=== PATIENT | female | born 1980 | race African-American/Black ===

== ENCOUNTER 2021-01-17 12:12 | Emergency (ER) | payer OTHER, SELFPAY ==
[2021-01-17 12:26] VITALS: BP 114/73; PULSE 91; RESP 20; TEMP 36.7; O2SAT 99
--- NOTE | 2021-01-17 12:35 | ED.GENADULT ---
HPI - General Adult General Chief complaint: Urogenital-Female Stated complaint: VAGINAL REDNESS/WHITE DISCHARGE/CRAMPING Time Seen by Provider: 01/17/21 12:25 Source: patient Mode of arrival: ambulatory Limitations: no limitations History of Present Illness HPI narrative: Daniella comes in with complaints of vaginal itching, and white discharge, which she describes as a white curd. Itching and discomfort has been moderately severe and ongoing for two days, with white discharge, more severe today. Duration has been two days. Measures taken at home has not helped. Related Data Allergies Allergy/AdvReac Type Severity Reaction Status Date / Time No Known Allergies Allergy Unknown Verified 06/21/15 13:33 Review of Systems Constitutional: Constitutional: Reports no additional constitutional complaints Eyes: Eyes: Reports no additional eye complaints ENT: Reports system reviewed and no additional complaints, except as documented Cardiovascular: Cardiovascular: Reports no additional cardiovascular complaints Respiratory: Respiratory: Reports no additional respiratory complaints Gastrointestinal: Gastrointestinal: Reports no additional gastrointestinal complaints Genitourinary: Genitourinary: Reports no additional female genitourinary complaints Musculoskeletal: Musculoskeletal: Reports no additional musculoskeletal complaints Integumentary/Breasts: Skin/Breast: Reports system reviewed and no additional complaints, except as docu Neurologic: Reports system reviewed and no additional complaints, except as documented Psychiatric: Psychiatric: Reports no additional psychiatric complaints Endocrine: Endocrine: Reports no additional endocrine complaints Hematologic/Lymphatic: Hematologic/Lymphatic: Reports no additional hematologic/lymphatic complaints Allergic/Immunologic: Allergic/Immunologic: Reports no additional allergic/immunologic complaints [facility] Past Medical History Medical History (Updated 01/17/21 @ 12:46 by Hector Malone MD) No significant past medical history Surgical History Surgical History (Updated 01/17/21 @ 12:46 by Hector Malone MD) No significant past surgical history Family History Family History (Updated 01/17/21 @ 12:46 by Hector Malone MD) Other No significant family history Social History Social History Smoking status: Never smoker Alcohol intake: never Gender identity (if verbalized by the patient): Female Exam Const: General: no acute distress and alert Orientation/consciousness: patient oriented x3 HENMT: Head: normal to inspection Ears: external ears normal and TM's normal bilaterally General nose exam: Normal external nose present Mouth: Yes Normal oral and palatal mucosa present Throat: posterior oropharynx normal Eyes: Conjunctivae: conjunctivae normal Neck: Neck: normal visual inspection Chest: Chest palpation & inspection: normal inspection of the chest Resp: Effort & Inspection: normal respiratory effort Auscultation: clear to auscultation bilaterally Cardio: Rate: regular rate Rhythm: regular rhythm GI: GI Palp: Yes Soft to palpation (nontender) : Other: Limited pelvic exam was done with Audrey RN, as cloth mercerizer operator. Exterior genitals appear within normal limits. As I open the labia, she has what looks like an obvious yeast vaginitis, with lots of white discharge. She has no adnexal tenderness on bimanual exam. There was concern I could cause her significant discomfort with the speculum, given her anatomy, and since it appeared the diagnosis was already obvious, a speculum exam was avoided. She clearly has a yeast vaginitis. Skin: General skin exam: normal color Neuro: General: patient oriented x3 and moves all extremities Extrem: General: normal to inspection Psych: Appearance: grossly normal Mental Status: mental status grossly normal Thought content: Yes Normal thought content present Course Course Emergency Course: Physical
== END 2021-01-17 12:52 | disposition home or self-care (01) ==
PROVIDERS: Emergency Provider Emergency Medicine
DX: N76.0 Acute vaginitis (principal)
CPT/HCPCS: 99283

== ENCOUNTER 2021-03-13 11:10 | Emergency (ER) | payer OTHER, SELFPAY ==
--- NOTE | 2021-03-13 11:39 | ED.GENADULT ---
HPI - General Adult General Chief complaint: Vaginal Bleeding Stated complaint: vaginal bleeding Time Seen by Provider: 03/13/21 11:39 History of Present Illness HPI narrative: 40-year-old female patient the cavernous 7 para 7 with 1 set of twins and 1 miscarriage is here with vaginal bleeding that started this morning. Patient states that she had her regular period on February 23 that ended on the . Last couple days she felt a little bloated and then this morning she started having irregular period again. She denies feeling lightheaded. She denies massive bleeding, states that that it feels like a regular period. she denies any urinary symptoms. She denies any fever or chills. Patient states that her last was 6 years ago and she states that she is not on any control pills nor is she sexually active. Related Data Home Medications Medication Instructions Recorded Confirmed No Home Medications 03/13/21 03/13/21 Allergies Allergy/AdvReac Type Severity Reaction Status Date / Time No Known Allergies Allergy Unknown Verified 06/21/15 13:33 Review of Systems Review of Systems: All systems reviewed & are unremarkable except as noted in HPI and below PMFSH Past Medical History Medical History No significant past medical history Surgical History Surgical History No significant past surgical history Family History Family History Other No significant family history Social History Social History Smoking status: Never smoker Alcohol intake: never Gender identity (if verbalized by the patient): Female Exam Narrative: Exam Narrative: Patient is alert and appears in no acute distress. Vital signs are stable. HEENT is normal. No conjunctival pallor is noted. Pupils are equal and reactive and EOMs are intact bilaterally. Lungs are clear. Heart tones are regular. No murmurs are appreciated. Abdomen is soft and nontender. No guarding or rebound on deep palpation. Pelvic examination has been deferred at this time. Extremities are within normal limits without any swelling or deformity. Neurologic exam is grossly normal. Patient is normal mood and affect and thought process. Course Course Emergency Course: Patient is aware of her negative urinalysis and negative urinary test. And she has been reassured about the bleeding being either breakthrough or possible menorrhagia. She is advised to follow up with the her primary care doctor or weigher and crusher and for further care. She remains stable. Discharge Plan Discharge Clinical Impression: Vaginal bleeding, Dysfunctional uterine bleeding Patient Disposition: Home, Self-Care Condition: Stable Instructions: Abnormal (Dysfunctional) Uterine Bleeding (ED) Additional Instructions: Stay well-hydrated if bleeding persists follow-up with your OBGYN or your primary care physician take ibuprofen for any cramps as needed Prescriptions: No Action No Home Medications RF: 0 Follow-up/Referrals: UNKNOWN,DOCTOR [Primary Care Provider] - Time of Disposition: 12:25
[2021-03-13 11:45] LABS: Add Urine Microscopic? YES; Appearance Urine Clear (Clear); Bilirubin Urine Negative (Negative); Blood Urine 2+ (Negative); Color Urine Light Yellow (Yellow); Glucose Urine UA Negative (Negative); Ketones Urine Negative (Negative); Leukocyte Esterase Ur Negative (Negative); Nitrate Urine Negative (Negative); Protein Urine Negative (Negative); Specific Grav Ur 1.025 (1.010-1.020); Urobilinogen Urine 0.2 mg/dL (0.2-1.0)
[2021-03-13 11:50] LABS: Bacteria Urine Trace /hpf; Squamous Epithelial Cell Urine Rare /hpf (Few); WBC Urine 0-3 /hpf (0-3)
[2021-03-13 11:51] LABS: Pregnancy On Board Control Positive; Urine Pregnancy Test Negative
[2021-03-13 12:33] VITALS: RESP 18; O2SAT 100
== END 2021-03-13 12:33 | disposition home or self-care (01) ==
PROVIDERS: Emergency Provider Emergency Medicine
DX: N93.9 Abnormal uterine and vaginal bleeding, unspecified (principal); N93.8 Other specified abnormal uterine and vaginal bleeding
CPT/HCPCS: 81001; 81025; 99282; 99283

== ENCOUNTER 2021-03-16 07:59 | Outpatient (CLI) | payer OTHER, SELFPAY ==
--- NOTE | ~2021-03-16 | US_ITS ---
EXAMINATION: US pelvic complete w TV DATE: 03/16/2021 08:46 INDICATION: Dysfunctional uterine bleeding TECHNIQUE: Multiple transabdominal and endovaginal sonographic images of the pelvis were obtained. COMPARISON: None. FINDINGS: The uterus measures 7.6 x 5.7 cm. The endometrial complex measures 5 mm. A hypoechoic areas of the uterus measuring up to 1.3 cm have the appearance of intramural fibroids. The right ovary karime sures 3.1 x 2 x 1.4 cm and contains multiple follicles. The left ovary measures 2.1 x 1.6 x 1.5 cm an d contains multiple follicles. There is normal vascular flow in the ovaries. There is no free fluid i n the pelvis. IMPRESSION: 1. No sonographic correlate for the patient's symptoms. Reviewed, dictated and finalized at location B.
== END 2021-03-16 08:00 | disposition home or self-care (01) ==
LOC: CHSIMG 08:00
PROVIDERS: PCP Family Medicine; Visit Provider Nurse Practitioner Psychiatric/Mental Health
DX: N93.8 Other specified abnormal uterine and vaginal bleeding (principal)
CPT/HCPCS: 76830; 76856

== ENCOUNTER 2021-06-30 06:47 | Emergency (ER) | payer OTHER, SELFPAY ==
[2021-06-30 07:00] VITALS: BP 119/76; PULSE 74; RESP 20; TEMP 36; O2SAT 100
[2021-06-30] MEDS: methylPREDNISolone SOD SUCC 125 MG VIAL IM (07:44)
[2021-06-30] MEDS: diphenhydrAMINE HCl CAP 25 MG CAPSULE 50 MG PO (07:44)
--- NOTE | 2021-06-30 07:49 | ED.SKABFB ---
HPI - Skin/Abscess/Foreign Bdy General Chief complaint: Skin/Abscess/Foreign Body Stated complaint: Rash Time Seen by Provider: 06/30/21 07:01 Source: patient and RN notes reviewed Mode of arrival: ambulatory Limitations: no limitations History of Present Illness complaint: rash Onset (ago): week(s) (4) Location: generalized Severity: mild Quality: pruritic Pain Consistency: other (pain-free) Relieving factors: topical medication and medication Exacerbating factors: none Context: other (known pityriasis rosea) Associated symptoms: itching Treatments prior to arrival: OTC topical medication Related Data Home Medications Medication Instructions Recorded Confirmed cephalexin 500 mg PO DAILY 06/30/21 06/30/21 terbinafine HCl 250 mg PO DAILY 06/30/21 06/30/21 Allergies Allergy/AdvReac Type Severity Reaction Status Date / Time No Known Allergies Allergy Unknown Verified 06/21/15 13:33 Review of Systems Review of Systems: All systems reviewed & are unremarkable except as noted in HPI and below Allergic/Immunologic: Comments: Mildly increased itchiness of pityriasis rosea. [facility] Past Medical History Medical History No significant past medical history Pityriasis rosea Surgical History Surgical History No significant past surgical history Family History Family History Other No significant family history Social History Social History Smoking status: Never smoker Alcohol intake: never Gender identity (if verbalized by the patient): Female Exam Const: General: no acute distress and alert Orientation/consciousness: patient oriented x3 Limitations: no limitations HENMT: Head: normal to inspection Ears: external ears normal and TM's normal bilaterally General nose exam: Normal external nose present and Normal nares present Mouth: Yes lip normal and Yes moist mucous membranes Teeth and gingiva: dentition normal Eyes: Conjunctivae: conjunctivae normal Pupils: Equal, round and reactive pupils present EOM: EOMs intact bilaterally Neck: Neck: normal visual inspection Chest: Chest palpation & inspection: normal inspection of the chest Resp: Effort & Inspection: normal respiratory effort Auscultation: clear to auscultation bilaterally Cardio: Rate: regular rate Rhythm: regular rhythm GI: Auscultation: normal bowel sounds : General: Yes bladder normal to palpation and Yes no CVA tenderness Back/Spine/Pelvis: Back: no CVA tenderness Skin: General skin exam: normal color Other: generalized plaque-like rash with excoriations and topical calamine. Neuro: General: patient oriented x3, moves all extremities, no meningeal signs, no focal motor deficits and CN's II-XI intact bilaterally Extrem: General: normal to inspection Psych: Appearance: grossly normal and well kempt Mental Status: mental status grossly normal Affect: normal affect Attitude: cooperative Thought content: Yes Normal thought content present Course Course Emergency Course: Pt was stable in the ED. Home with Ship/Rec/Doc Control review DENISHA. Reevaluation(s) Reevaluation #1: pt was stable in the ED. Date: 06/30/21 Time: 07:56 Vital Signs Vital signs: Vital Signs Temperature 36.0 C L 06/30/21 07:00 Pulse Rate 74 06/30/21 07:00 Respiratory Rate 20 06/30/21 07:00 Blood Pressure 119/76 06/30/21 07:00 Pulse Oximetry 100 06/30/21 07:00 Temperature 36.0 C L 06/30/21 07:00 Pulse Rate 74 06/30/21 07:00 Respiratory Rate 20 06/30/21 07:00 Blood Pressure 119/76 06/30/21 07:00 Pulse Oximetry 100 06/30/21 07:00 MDM - Skin/Abscess/Foreign Bdy Differential Diagnosis Differential diagnosis: Likely urticaria, allergic reaction to drug, eczema and contact dermatitis Medical
== END 2021-06-30 08:08 | disposition home or self-care (01) ==
PROVIDERS: Emergency Provider Emergency Medicine; PCP Family Medicine
DX: L42 Pityriasis rosea (principal)
CPT/HCPCS: 96372; 99283; A9270; J2930

== ENCOUNTER 2021-07-07 08:44 | Emergency (ER) | payer OTHER, SELFPAY ==
[2021-07-07 09:00] VITALS: BP 113/81; PULSE 88; RESP 14; TEMP 36.3; O2SAT 100
--- NOTE | 2021-07-07 09:57 | ED.SKABFB ---
HPI - Skin/Abscess/Foreign Bdy General Chief complaint: Skin/Abscess/Foreign Body Stated complaint: RASH Time Seen by Provider: 07/07/21 09:58 Source: patient Mode of arrival: ambulatory Limitations: no limitations History of Present Illness HPI narrative: 40-year-old woman comes in today complaining of an itchy rash that started approximately 2 weeks ago. 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 Her itching has gotten significantly worse. She has had no pustules, blisters, drainage. she states that she took a short course of steroids for her symptoms which helped the itching temporarily but the itching and rash came back worse after stopping the steroid. She denies previous similar symptoms. complaint: rash Onset (ago): week(s) (2) Location: generalized Quality: pruritic Relieving factors: medication (steroids) Exacerbating factors: none Context: none Associated symptoms: denies other symptoms Treatments prior to arrival: corticosteroid and antibiotic Related Data Allergies Allergy/AdvReac Type Severity Reaction Status Date / Time No Known Allergies Allergy Unknown Verified 07/07/21 09:11 Review of Systems Review of Systems: All systems reviewed & are unremarkable except as noted in HPI and below Constitutional: Constitutional: Denies chills and Denies fever(s) Respiratory: Respiratory: Denies cough and Denies dyspnea Gastrointestinal: Gastrointestinal: Denies nausea and Denies vomiting Musculoskeletal: Musculoskeletal: Denies arthralgias and Denies joint swelling Integumentary/Breasts: Skin/Breast: Reports pruritus, Denies erythema and Reports rash PMFSH Past Medical History Medical History No significant past medical history Pityriasis rosea Surgical History Surgical History No significant past surgical history Family History Family History Other No significant family history Social History Social History Smoking status: Never smoker Alcohol intake: never Gender identity (if verbalized by the patient): Female Exam Const: General: no acute distress and alert Orientation/consciousness: patient oriented x3 HENMT: Head: normal to inspection Mouth: Yes moist mucous membranes Throat: posterior oropharynx normal Eyes: Conjunctivae: conjunctivae normal Pupils: Equal, round and reactive pupils present EOM: EOMs intact bilaterally Resp: Effort & Inspection: normal respiratory effort and not labored Auscultation: clear to auscultation bilaterally, no rales, no rhonchi and no wheezes Cardio: Rate: regular rate Rhythm: regular rhythm Heart sounds: no murmurs Skin: General skin exam: normal color, no jaundice and no pallor Other: Oval 1-3 cm macules with silver scale over the trunk and proximal arms and legs. Face is minimally involved. Neuro: General: patient oriented x3, moves all extremities, no focal motor deficits and CN's II-XI intact bilaterally Speech: normal speech Gait exam (Neuro): Normal gait present Extrem: General: normal to inspection and no clubbing, cyanosis or edema Psych: Appearance: grossly normal and well kempt Mental Status: mental status grossly normal Affect: normal affect Attitude: cooperative Thought content: Yes Normal thought content present Course Vital Signs Vital signs: Vital Signs Temperature 36.3 C L 07/07/21 09:00 Pulse Rate 88 07/07/21 09:00 Respiratory Rate 14 07/07/21 09:00 Blood Pressure 113/81 07/07/21 09:00 Pulse Oximetry 100 07/07/21 09:00 Temperature 36.3 C L 07/07/21 09:00 Pulse Rate 88 07/07/21 09:00 Respiratory Rate 14 07/07/21 09:00 Blood Pressure 113/81 07/07/21 09:00 Pulse Oximetry 100 07/07/21 09:00 Discharge Plan Discharge
== END 2021-07-07 10:32 | disposition home or self-care (01) ==
PROVIDERS: Emergency Provider Emergency Medicine; PCP Family Medicine
DX: L42 Pityriasis rosea (principal)
CPT/HCPCS: 99283

== ENCOUNTER 2022-08-06 08:18 | Emergency (ER) | payer OTHER, SELFPAY ==
[2022-08-06 08:20] VITALS: BP 108/83; PULSE 94; RESP 16; TEMP 36.5; O2SAT 100
--- NOTE | 2022-08-06 08:27 | ED.EAR ---
HPI - Ear Problem General Chief complaint: Ear Stated complaint: Ear pain Time Seen by Provider: 08/06/22 08:25 Source: patient Mode of arrival: ambulatory Limitations: no limitations History of Present Illness HPI Narrative: 41-year-old female presents to the ER with a 2 day history of -- bilateral ear pain. Right greater than the left. No discharge from the ears. No fever. Location: bilateral Duration: constant Severity: mild Relieving factors: nothing Exacerbating factors: nothing Discharge from ear: Reports no Related Data Allergies Allergy/AdvReac Type Severity Reaction Status Date / Time No Known Allergies Allergy Unknown Verified 08/06/22 08:25 Review of Systems Review of Systems: All systems reviewed & are unremarkable except as noted in HPI and below Constitutional: Constitutional: Reports as per HPI and Reports no additional constitutional complaints Eyes: Eyes: Reports as per HPI and Reports no additional eye complaints ENT: Reports system reviewed and no additional complaints, except as documented Cardiovascular: Cardiovascular: Reports as per HPI and Reports no additional cardiovascular complaints Respiratory: Respiratory: Reports as per HPI and Reports no additional respiratory complaints Gastrointestinal: Gastrointestinal: Reports as per HPI and Reports no additional gastrointestinal complaints Genitourinary: Genitourinary: Reports no additional female genitourinary complaints Musculoskeletal: Musculoskeletal: Reports no additional musculoskeletal complaints and Reports as per HPI Integumentary/Breasts: Skin/Breast: Reports system reviewed and no additional complaints, except as docu and Reports as per HPI Neurologic: Reports system reviewed and no additional complaints, except as documented and Reports as per HPI Psychiatric: Psychiatric: Reports no additional psychiatric complaints and Reports as per HPI Endocrine: Endocrine: Reports no additional endocrine complaints and Reports as per HPI Hematologic/Lymphatic: Hematologic/Lymphatic: Reports no additional hematologic/lymphatic complaints and Reports as per HPI Allergic/Immunologic: Allergic/Immunologic: Reports no additional allergic/immunologic complaints and Reports as per HPI PMFSH Past Medical History Medical History No significant past medical history Pityriasis rosea Surgical History Surgical History No significant past surgical history Family History Family History Other No significant family history Social History Social History Smoking status: Never smoker Alcohol intake: never Gender identity (if verbalized by the patient): Female Exam Const: General: healthy appearing Nutritional Appearance: thin Orientation/consciousness: patient oriented x3 Limitations: no limitations HENMT: Head: normal to inspection Ears: external ears normal ( Left ear looks unremarkable. Right ear has wax obscuring the tympanic me) Face/Nose/Sinus: Normal external nose present Face and sinus: normal facial exam Mouth: Yes Normal oral and palatal mucosa present Throat: posterior oropharynx normal Eyes: Conjunctivae: conjunctivae normal Pupils: Equal, round and reactive pupils present EOM: EOMs intact bilaterally Direct Ophthalmoscopy: no photophobia Neck: Neck: normal visual inspection and no lymphadenopathy Chest: Chest palpation & inspection: normal inspection of the chest and abnormal inspection of the chest Resp: Effort & Inspection: normal respiratory effort Auscultation: clear to auscultation bilaterally Cardio: Rate: regular rate Rhythm: regular rhythm GI: Auscultation: normal bowel sounds : General: Yes bladder normal to palpation Back/Spine/Pelvis: Back: no CVA tenderness Skin:
== END 2022-08-06 09:35 | disposition home or self-care (01) ==
PROVIDERS: Emergency Provider Internal Medicine Critical Care Medicine; PCP Family Medicine
DX: H61.21 Impacted cerumen, right ear (principal); H92.03 Otalgia, bilateral
CPT/HCPCS: 69209; 99283

== ENCOUNTER 2023-07-15 08:25 | Outpatient (CLI) | payer OTHER, SELFPAY ==
[2023-07-15 08:40] LABS: Hematocrit 33.2 % (35.0-49.0); Hemoglobin 10.6 g/dL (12.0-15.0); Mean Corpuscular HGB Conc 31.9 g/dL (32.0-36.0); Mean Corpuscular Hemoglobin 27.1 pg (27.0-31.0); Mean Corpuscular Volume 84.9 fL (78.0-102.0); Mean Platelet Volume 9.8 fl (9.2-11.8); Platelet Count Result 231 K/mm3 (150-420); Red Blood Count 3.91 M/mm3 (4.20-5.40); Red Cell Distribution Width 14.6 % (11.6-14.4)
[2023-07-15 08:56] LABS: Partial Thromboplastin Time 28.5 SEC (23.90-30.70); Prothrombin Time 10.8 Seconds (9.50-12.10)
[2023-07-15 09:13] LABS: Total Cells Counted 100
[2023-07-15 09:14] LABS: Band Neutrophils Percent 0 % (0-6); Basophils Absolute Manual 0.02 K/mm3 (0-0.1); Basophils Percent Manual 1 % (0-1); Eosinophils Absolute Manual 0.08 K/mm3 (0.02-0.5); Eosinophils Percent Manual 4 % (1-6); Lymphocytes Absolute Manual 0.94 K/mm3 (1.1-4.5); Lymphocytes Percent Manual 47 % (18-44); Monocytes Absolute Manual 0.18 K/mm3 (0.1-0.90); Monocytes Percent Manual 9 % (3-9); Neutrophils Absolute Manual 0.78 K/mm3 (1.7-7.2); Neutrophils Percent Manual 39 % (46-73); Platelet Estimate Adequate (Adequate)
[2023-07-15 09:25] LABS: Alanine Aminotransferase 17 U/L (14-59); Albumin Level 3.9 g/dL (3.4-5.0); Alkaline Phosphatase 38 U/L (46-116); Anion Gap 7 mmol/L (8-16); Aspartate Amino Transferase 11 U/L (15-37); Bilirubin,Total 0.4 mg/dL (0.00-1.00); Blood Urea Nitrogen 9 mg/dL (7-18); Calcium 8.8 mg/dL (8.5-10.1); Carbon Dioxide 31 mmol/L (21-32); Chloride 102 mmol/L (98-108); Estimated Glomerular Filt Rate > 60; Glucose 93 mg/dL (70-99); Iron 58 ug/dL (50-170); Osmolality Calculated 288 mOsm/kg (285-295); Percent Iron Saturation 14 % (12-57); Sodium 140 mmol/L (136-145); Thyroid Stimulating Hormone 0.19 uIU/mL (0.36-3.74); Total Protein 7.4 g/dL (6.4-8.2)
[2023-07-17 11:30] LABS: Vitamin D 25 Hydroxy 10 ng/mL (30-100)
[2023-07-18 06:43] LABS: FSH 12.7 mIU/mL (***)
[2023-07-19 22:11] LABS: Estradiol, Ultrasensitive 84 pg/mL
== END 2023-07-15 08:26 | disposition home or self-care (01) ==
PROVIDERS: PCP Family Medicine; Visit Provider Physician Assistant
DX: N93.9 Abnormal uterine and vaginal bleeding, unspecified (principal); E55.9 Vitamin D deficiency, unspecified; E61.1 Iron deficiency
CPT/HCPCS: 36415; 80053; 82306; 82670; 83001; 83002; 83540; 83550; 84443; 85025; 85610; 85730

== ENCOUNTER 2023-07-17 12:46 | Outpatient (CLI) | payer OTHER, SELFPAY ==
--- NOTE | ~2023-07-17 | US_ITS ---
EXAMINATION: US pelvic complete w TV DATE: 07/17/2023 13:25 INDICATION: Vaginal bleeding Comparison:Ultrasound dated 03/16/2021 TECHNIQUE: Multiple transabdominal and endovaginal sonographic images of the pelvis performed. FINDINGS: The uterus measures 10.2 x 6.5 x 5.8 cm. There are small uterine fibroids, largest measurin g 2.5 cm in the lower uterine segment. The endometrial complex measures 7 mm. The right ovary measures 4 x 2.3 x 1.4 cm and the left ovary measures 2.2 x 2.1 x 2.9 cm. There are small follicles in each ovary. Normal doppler signal in both ovaries. There is no free fluid in the pelvis. There are no abnormal masses seen on either side. IMPRESSION: 1. Mildly enlarged uterus with small uterine fibroids measuring up to 2.5 cm in the lower uterine seg ment. Reviewed, dictated and finalized at location B. [employer] IMPRESSION: 1. Mildly enlarged uterus with small uterine fibroids measuring up to 2.5 cm in the lower uterine segment.
== END 2023-07-17 12:47 | disposition home or self-care (01) ==
LOC: CHSIMG 12:48
PROVIDERS: PCP Family Medicine; Visit Provider Physician Assistant
DX: N93.9 Abnormal uterine and vaginal bleeding, unspecified (principal); D25.9 Leiomyoma of uterus, unspecified; N85.2 Hypertrophy of uterus
CPT/HCPCS: 76830; 76856

== ENCOUNTER 2023-08-07 10:49 | Outpatient (CLI) | payer OTHER, SELFPAY ==
--- NOTE | ~2023-08-07 | US_ITS ---
EXAMINATION: US thyroid DATE: 08/07/2023 11:10 INDICATION: Abnormal thyroid function tests. Low TSH. TECHNIQUE: Multiple ultrasound images of the thyroid were obtained. COMPARISON: None. FINDINGS: The right thyroid lobe measures 5.0 x 1.7 x 2.0 cm. The left thyroid lobe measures 5.4 x 1.8 x 1.6 c m. In the left thyroid lobe, there is a 5 mm solid, hypoechoic, wider than tall nodule with irregula r margin without echogenic foci (TI-RADS TR4). IMPRESSION: 1. Small thyroid nodule, likely not clinically significant. No follow-up is needed. Reviewed, dictated and finalized at location A. [employer] SCHEDULING COORDINATOR IMPRESSION: 1. Small thyroid nodule, likely not clinically significant. No follow-up is nee ded.
== END 2023-08-07 10:50 | disposition home or self-care (01) ==
LOC: CHSIMG 10:51
PROVIDERS: PCP Family Medicine; Visit Provider Physician Assistant
DX: R79.89 Other specified abnormal findings of blood chemistry (principal)
CPT/HCPCS: 76536

== ENCOUNTER 2023-12-29 13:26 | Emergency (ER) | payer OTHER, SELFPAY ==
[2023-12-29 13:26] VITALS: BP 120/85; PULSE 97; RESP 18; TEMP 36.7; O2SAT 98
--- NOTE | 2023-12-29 13:34 | ED.FEMALEGU ---
HPI - Female Genitourinary General Chief complaint: FREE LANCE MODEL Stated complaint: vaginal bleeding Time Seen by Provider: 12/29/23 13:34 Source: patient Mode of arrival: ambulatory Limitations: no limitations History of Present Illness HPI Narrative: Patient is a 43-year-old female with intermenstrual bleeding for the past 5 days. She has moderate flow without significant pain. She is having slight cramping. She is occasionally having clots with the bleeding. Her cycles otherwise have been normal. She is not sexually active at this time. No concerns for STDs or . MD elicited complaint: vaginal bleeding Pertinent past history: prior miscarriages Onset (ago): day(s) (5) Location of symptoms: vaginal ( Minimal cramping) Severity: mild Female Urogenital Radiation: Non-Radiating Severity scale (1-10): 1 Quality of pain: cramping Consistency: intermittent Vaginal discharge: none Vaginal bleeding: moderate, bright red, dark red and clots Exacerbating factors: none Relieving factors: none Associated symptoms: denies other symptoms Treatment prior to arrival: none Sexual activity: No Patient : No Related Data Allergies Allergy/AdvReac Type Severity Reaction Status Date / Time No Known Allergies Allergy Unknown Verified 08/06/22 08:25 Review of Systems Review of Systems: All systems reviewed & are unremarkable except as noted in HPI and below Constitutional: Constitutional: Reports no additional constitutional complaints Eyes: Eyes: Reports no additional eye complaints ENT: Reports system reviewed and no additional complaints, except as documented Cardiovascular: Cardiovascular: Reports no additional cardiovascular complaints Respiratory: Respiratory: Reports no additional respiratory complaints Gastrointestinal: Gastrointestinal: Reports no additional gastrointestinal complaints Genitourinary: Genitourinary: Reports no additional female genitourinary complaints Musculoskeletal: Musculoskeletal: Reports no additional musculoskeletal complaints Integumentary/Breasts: Skin/Breast: Reports system reviewed and no additional complaints, except as docu Neurologic: Reports system reviewed and no additional complaints, except as documented Psychiatric: Psychiatric: Reports no additional psychiatric complaints Endocrine: Endocrine: Reports no additional endocrine complaints Hematologic/Lymphatic: Hematologic/Lymphatic: Reports no additional hematologic/lymphatic complaints Allergic/Immunologic: Allergic/Immunologic: Reports no additional allergic/immunologic complaints PMFSH Past Medical History Medical History No significant past medical history Pityriasis rosea Surgical History Surgical History No significant past surgical history Family History Family History Other No significant family history Social History Social History Smoking status: Never smoker Alcohol intake: never Gender identity (if verbalized by the patient): Female Exam Const: General: healthy appearing Nutritional Appearance: well nourished Orientation/consciousness: patient oriented x3 HENMT: Head: normal to inspection Ears: external ears normal Face/Nose/Sinus: Normal external nose present Eyes: Conjunctivae: conjunctivae normal Pupils: Equal, round and reactive pupils present EOM: EOMs intact bilaterally Neck: Neck: normal visual inspection Chest: Chest palpation & inspection: normal inspection of the chest Resp: Effort & Inspection: normal respiratory effort and not labored Auscultation: clear to auscultation bilaterally Cardio: Rate: regular rate Rhythm: regular rhythm Heart sounds: no murmurs GI: Inspection: non-distended GI Palp: Yes Soft to palpation and No Tenderness to palpat
[2023-12-29 14:23] LABS: Hematocrit 32.5 % (35.0-49.0); Hemoglobin 10.1 g/dL (12.0-15.0); Mean Corpuscular HGB Conc 31.1 g/dL (32-36); Mean Corpuscular Volume 86.9 fL (78.0-102.0); Mean Platelet Volume 9.7 fl (9.2-11.8); Platelet Count Result 285 K/mm3 (150-420); Red Blood Count 3.74 M/mm3 (4.20-5.40); Red Cell Distribution Width 13.2 % (11.6-14.4)
[2023-12-29 14:25] LABS: Bilirubin Urine Negative (Negative); Blood Urine 3+ (Negative); Color Urine Yellow (Yellow); Glucose Urine UA Negative (Negative); Ketones Urine Trace (Negative); Leukocyte Esterase Ur Negative LEU/UL (Negative); Nitrate Urine Negative (Negative); Protein Urine Negative (Negative); Specific Grav Ur 1.025 (1.010-1.020); Urobilinogen Urine 0.2 mg/dL (0.2-1.0)
[2023-12-29 14:32] LABS: Pregnancy On Board Control Positive; Urine Pregnancy Test Negative
[2023-12-29 14:33] LABS: Add Urine Microscopic? YES; Appearance Urine Sl Cloudy (Clear); Mucus Urine Heavy /lpf; RBC Urine >100 /hpf (0-2); Squamous Epithelial Cell Urine Moderate /hpf (Few)
[2023-12-29 14:34] LABS: INR 0.9; Partial Thromboplastin Time 25.6 Sec (23.9-30.70); Prothrombin Time 10.4 Seconds (9.50-12.1)
[2023-12-29 14:53] LABS: Alanine Aminotransferase 17 U/L (14-59); Albumin Level 3.7 g/dL (3.4-5.0); Alkaline Phosphatase 41 U/L (46-116); Anion Gap 8 mmol/L (4-12); Aspartate Amino Transferase 14 U/L (15-37); Bilirubin,Total 0.3 mg/dL (0.00-1.00); Blood Urea Nitrogen 10 mg/dL (7-18); Calcium 8.7 mg/dL (8.5-10.1); Carbon Dioxide 29 mmol/L (21-32); Chloride 104 mmol/L (98-108); Estimated CRCL calculation 42 ml/min; Estimated Glomerular Filt Rate 52; Glucose 94 mg/dL (70-99); Osmolality Calculated 291 mOsm/kg (285-295); Sodium 141 mmol/L (136-145); Thyroid Stimulating Hormone 0.09 uIU/mL (0.36-3.74); Total Protein 7.2 g/dL (6.4-8.2)
[2023-12-29 15:06] LABS: Band Neutrophils Percent 0 % (0-6); Basophils Absolute Manual 0.03 K/mm3 (0-0.1); Basophils Percent Manual 1 % (0-1); Eosinophils Absolute Manual 0.09 K/mm3 (0.02-0.50); Eosinophils Percent Manual 3 % (1-6); Lymphocytes Absolute Manual 1.26 K/mm3 (1.1-4.5); Lymphocytes Percent Manual 42 % (18-44); Monocytes Absolute Manual 0.12 K/mm3 (0.1-0.90); Monocytes Percent Manual 4 % (3-9); Neutrophils Percent Manual 50 % (46-73); Platelet Estimate Adequate (Adequate); Schistocytes None Seen; Total Cells Counted 100
[2023-12-29 16:02] LABS: Free T4 Free Thyroxine 0.86 ng/dL (0.76-1.46)
[2023-12-29 16:20] VITALS: BP 109/79; PULSE 76; RESP 20; TEMP 37.1; O2SAT 94
== END 2023-12-29 16:20 | disposition home or self-care (01) ==
PROVIDERS: Emergency Provider Emergency Medicine; PCP Family Medicine
DX: N92.1 Excessive and frequent menstruation with irregular cycle (principal)
CPT/HCPCS: 36415; 80053; 81001; 81025; 84439; 84443; 85025; 85610; 85730; 99283

== ENCOUNTER 2024-01-14 14:10 | Outpatient (CLI) | payer OTHER, SELFPAY ==
--- NOTE | ~2024-01-14 | MM_ITS ---
EXAMINATION: MM screening [facility]ion BI w marguerite HISTORY: Screening TECHNIQUE: Craniocaudal and mediolateral oblique 3-D tomosynthesis images were obtained and synthetic 2-D images were generated. CAD analysis was submitted and interpreted. COMPARISON: No prior mammogram is available for comparison at this institution. BREAST PARENCHYMAL COMPOSITION: Dense: The breasts are extremely dense, which lowers the sensitivity of mammography. FINDINGS: There is no evidence of suspicious mass, calcification, or architectural distortion to sugg est malignancy in either breast. There has been no suspicious interval change. IMPRESSION: 1. No mammographic evidence of malignancy. 2. Recommend routine screening mammography in one year. BI-RADS Category 1: Negative Reviewed, dictated and finalized at location A.
== END 2024-01-14 14:11 | disposition home or self-care (01) ==
LOC: CHSIMG 14:11
PROVIDERS: PCP Family Medicine; Visit Provider Physician Assistant
DX: Z12.31 Encounter for screening mammogram for malignant neoplasm of breast (principal)
CPT/HCPCS: 77063; 77067

== ENCOUNTER 2024-03-30 11:53 | Emergency (ER) | payer OTHER, SELFPAY ==
[2024-03-30 11:53] VITALS: BP 130/82; PULSE 78; RESP 18; TEMP 36.6; O2SAT 100
--- NOTE | 2024-03-30 11:59 | ED.PSYCH ---
HPI - Psych General Chief Complaint: Psychiatric Symptoms Stated Complaint: psychiatric eval Time Seen by Provider: 03/30/24 11:58 Source: patient and EMS Mode of arrival: EMS History of Present Illness HPI Narrative: 43 years old female came to the emergency room by ambulance, suicidal attempt by taking overdose of ibuprofen 200 mg, 20 tablets and Benadryl 25 mg, 3 tablets early today. Patient is healthy otherwise, does not take medicine at home, been in a relationship over the last 6 months got sour lately and patient is so stressed about it. She is telling me that she had overdose because she would like to rest. She denied any history of anxiety, depression, suicidal attempts in the past or any family history of psych issues. Patient does not smoke or drink or use drugs. Related Data Home Medications Medication Instructions Recorded Confirmed No Home Medications 03/30/24 03/30/24 Allergies Allergy/AdvReac Type Severity Reaction Status Date / Time No Known Allergies Allergy Unknown Verified 08/06/22 08:25 Review of Systems Review of Systems: All systems reviewed & are unremarkable except as noted in HPI and below PMFSH Past Medical History Medical History No significant past medical history Pityriasis rosea Surgical History Surgical History No significant past surgical history Family History Family History Other No significant family history Social History Social History Smoking status: Never smoker Alcohol intake: never Substance use type: does not use Gender identity (if verbalized by the patient): Female Exam Narrative: General appearance: Well-developed, well-nourished Skin: Normal color Head: Normocephalic, nontraumatic Eyes: Clear conjunctiva ENT: Oropharynx normal, ears normal, nose normal Neck: Supple, nontender Chest and respiratory: Airway patent, no respiratory distress, no accessory muscle use Heart: Regular rate/rhythm Abdomen: Soft, nontender, no organomegaly, quiet bowel sounds Vascular: Normal peripheral pulses, normal capillary refill. 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 tested, no gross motor deficit Course Vital Signs Vital signs: Vital Signs Temperature 36.6 C 03/30/24 11:53 Pulse Rate 78 03/30/24 11:53 Respiratory Rate 18 03/30/24 11:53 Blood Pressure 130/82 03/30/24 11:53 Pulse Oximetry 100 03/30/24 11:53 Oxygen Delivery Room Air 03/30/24 11:53 Temperature 36.6 C 03/30/24 11:53 Pulse Rate 89 03/30/24 13:52 Respiratory Rate 16 03/30/24 13:52 Blood Pressure 116/64 03/30/24 13:52 Pulse Oximetry 100 03/30/24 13:52 Oxygen Delivery Room Air 03/30/24 13:52 MDM - Psych MDM Narrative Medical decision making narrative: patient came to the emergency room after taking 20 tablets of ibuprofen 200 mg each and 3 tablet of Benadryl 25 mg each to rest. Patient denies a possibility of harming herself just was mad at her relationship with a man recently. Vital signs on arrival are stable Physical examination showed No remarkable abnormality Differential diagnosis include depression, anxiety, suicidal by overdose. Blood workup today including urine drug screen and alcohol level came back within normal limit. Psych eval showed that the patient can go home with safety plan. Which I do agree. Patient does not have any history of depression or anx
[2024-03-30 12:18] LABS: Add Urine Microscopic? NO; Appearance Urine Clear (Clear); Bilirubin Urine Negative (Negative); Blood Urine Trace-intact (Negative); Color Urine Light Yellow (Yellow); Glucose Urine UA Negative (Negative); Ketones Urine Negative (Negative); Leukocyte Esterase Ur Negative LEU/UL (Negative); Nitrate Urine Negative (Negative); Protein Urine Negative (Negative); Specific Grav Ur <= 1.005 (1.010-1.020); Urobilinogen Urine 0.2 mg/dL (0.2-1.0)
--- NOTE | 2024-03-30 12:21 | ECG_ITS ---
Test Date: 2024-03-30 12:29:06 Measurements Intervals [place] Rate: 52 P: 39 FL: 94 QRS: 78 QRSD: 92 T: 72 QT: 398 QTc: 372 Interpretive Statements SINUS BRADYCARDIA MINIMAL VOLTAGE CRITERIA FOR LVH, CONSIDER NORMAL VARIANT [MEETS CRITERIA IN ONE OF: R(aVL), S(V1), R(V5), R(V5/V6)+S(V1)] No previous ECG available for comparison Electronically Signed On 03-31-2024 14:33:51 CDT by Janette Gonzalez M.D.
--- NOTE | 2024-03-30 12:22 | PC.NURSE ---
Called poison control and spoke with Leonidas who recommends adding EKG in addition to already ordered labs. Leonidas states with amounts of medication Pt reported taking she may possibly experience some minor gastritis and drowsiness. Will call with an update once labs are resulted. Leonidas aware of delay in lab results and states that will not be a problem.
--- NOTE | 2024-03-30 12:45 | PC.NURSE ---
Pt given lunch tray. Two family members at bedside with Pt. Pt's mother has called to check on Pt. Mother knew why Pt was in ER. Pt aware that mom called and states that she does not want her to be given any more information if she calls again.
[2024-03-30 12:55] LABS: Pregnancy On Board Control Positive; Urine Pregnancy Test Negative
[2024-03-30 13:03] LABS: Hematocrit 37.5 % (35.0-49.0); Hemoglobin 12.3 g/dL (12.0-15.0); Mean Corpuscular HGB Conc 32.8 g/dL (32-36); Mean Corpuscular Hemoglobin 28.7 pg (27.0-31.0); Mean Corpuscular Volume 87.6 fL (78.0-102.0); Mean Platelet Volume 10.4 fl (9.2-11.8); Platelet Count Result 252 K/mm3 (150-420); Red Blood Count 4.28 M/mm3 (4.20-5.40); Red Cell Distribution Width 14.4 % (11.6-14.4); White Blood Count 2.9 K/mm3 (4.8-10.8)
--- NOTE | 2024-03-30 13:12 | PC.NURSE ---
Per ERP evaluation, Pt admits to suicide attempt. Pt denied SI to this RN and PCT during initial assessment.
[2024-03-30 13:14] LABS: Band Neutrophils Percent 0 % (0-6); Ethanol < 10 mg/dL (<10); Lymphocytes Absolute Manual 0.92 K/mm3 (1.1-4.5); Lymphocytes Percent Manual 32 % (18-44); Monocytes Absolute Manual 0.08 K/mm3 (0.1-0.90); Monocytes Percent Manual 3 % (3-9); Neutrophils Absolute Manual 1.85 K/mm3 (1.7-7.2); Neutrophils Percent Manual 64 % (46-73); Total Cells Counted 100
[2024-03-30 13:15] LABS: Eosinophils Absolute Manual 0.02 K/mm3 (0.02-0.50); Eosinophils Percent Manual 1 % (1-6)
[2024-03-30 13:18] LABS: Platelet Estimate Adequate (Adequate)
[2024-03-30 13:21] LABS: Amphetamine Screen Urine Negative (Negative); Barbiturate Screen Urine Negative (Negative); Benzodiazepines Screen Urine Negative (Negative); Cannabinoid Screen Urine Negative (Negative); Cocaine Screen Urine Negative (Negative); Methadone Screen Urine Negative (Negative); Opiate Screen Urine Negative (Negative); Phencyclidine Screen Urine Negative (Negative)
[2024-03-30 13:25] LABS: Alanine Aminotransferase 13 U/L (6-35); Albumin Level 4.5 g/dL (3.5-5.1); Alkaline Phosphatase 45 U/L (38-126); Anion Gap 9 mmol/L (4-12); Aspartate Amino Transferase 30 U/L (14-36); Bilirubin,Total 0.4 mg/dL (0.2-1.3); Blood Urea Nitrogen 6 mg/dL (7-17); Calcium 9.2 mg/dL (8.4-10.2); Carbon Dioxide 26 mmol/L (22-30); Chloride 101 mmol/L (98-107); Estimated CRCL calculation 78 ml/min; Estimated Glomerular Filt Rate > 60; Glucose 97 mg/dL (65-110); Osmolality Calculated 279 mOsm/kg (285-295); Potassium 3.6 mmol/L (3.4-5.0); Sodium 136 mmol/L (137-145)
[2024-03-30 13:35] LABS: Acetaminophen < 10 ug/mL (10-30)
[2024-03-30 13:45] LABS: Salicylate < 1.0 mg/dL (2-20)
--- NOTE | 2024-03-30 13:48 | PC.NURSE ---
Pt remains asymptomatic. [facility]k contacted and will send someone to evaluate Pt.
[2024-03-30 13:52] VITALS: BP 116/64; PULSE 89; RESP 16; O2SAT 100
--- NOTE | 2024-03-30 14:43 | PC.NURSE ---
Updated poison control with Pt's lab results. They recommend 4 hour observation period from time of ingestion, which was approximately 11:00. Pt remains asymptomatic and based on reported doses and test results they do not anticipate any complications so they will be closing the case. However, if Pt does develop symptoms while still in ER they said to call back and they can give further recommendations at that time if needed.
--- NOTE | 2024-03-30 15:19 | PC.NURSE ---
[facility] staff have arrived for Pt's evaluation.
[2024-03-30 15:57] LABS: Thyroid Stimulating Hormone Reflex 0.081 uIU/mL (0.465-4.68)
--- NOTE | 2024-03-30 16:21 | PC.NURSE ---
[facility] staff still at bedside, discussing plan of care with Pt and family.
[2024-03-30 16:44] VITALS: BP 131/89; PULSE 86; RESP 18; TEMP 37.1; O2SAT 97
[2024-03-30 18:38] LABS: Free T4 Free Thyroxine Reflex 1.15 ng/dL (0.78-2.19)
[2024-03-30 20:07] LABS: Total Triiodothyronine (T3) 1.15 NG/ML (0.97-1.69)
== END 2024-03-30 16:55 ==
PROVIDERS: Emergency Provider Emergency Medicine; PCP Family Medicine
DX: F32.9 Major depressive disorder, single episode, unspecified (principal); T39.312A Poisoning by propionic acid derivatives, intentional self-harm, initial encounter; T45.0X2A Poisoning by antiallergic and antiemetic drugs, intentional self-harm, initial encounter
CPT/HCPCS: 36415; 80053; 80307; 81003; 81025; 84439; 84443; 84480; 85025; 93005; 99285

== ENCOUNTER 2024-09-09 09:34 | Outpatient (CLI) | payer OTHER, SELFPAY ==
[2024-09-09 09:48] LABS: Hematocrit 34.8 % (35.0-49.0); Hemoglobin 11.5 g/dL (12.0-15.0); Mean Corpuscular Hemoglobin 28.5 pg (27.0-31.0); Mean Corpuscular Volume 86.1 fL (78.0-102.0); Mean Platelet Volume 9.6 fl (9.2-11.8); Platelet Count Result 204 K/mm3 (150-420); Red Blood Count 4.04 M/mm3 (4.20-5.40); Red Cell Distribution Width 12.6 % (11.6-14.4); White Blood Count 3.1 K/mm3 (4.8-10.8)
[2024-09-09 10:13] LABS: Band Neutrophils Percent 0 % (0-6); Lymphocytes Absolute Manual 1.39 K/mm3 (1.1-4.5); Lymphocytes Percent Manual 45 % (18-44); Monocytes Absolute Manual 0.18 K/mm3 (0.1-0.90); Monocytes Percent Manual 6 % (3-9); Neutrophils Absolute Manual 1.45 K/mm3 (1.7-7.2); Neutrophils Percent Manual 47 % (46-73); Total Cells Counted 100
[2024-09-09 10:14] LABS: Basophils Absolute Manual 0.03 K/mm3 (0-0.1); Basophils Percent Manual 1 % (0-1); Eosinophils Absolute Manual 0.03 K/mm3 (0.02-0.50); Eosinophils Percent Manual 1 % (1-6); Platelet Estimate Adequate (Adequate)
[2024-09-09 10:59] LABS: Folic Acid 12.1 ng/mL (8.6->20); Iron 91 ug/dL (50-170); Percent Iron Saturation 22 % (12-57); Vitamin B12 634 pg/mL (193-986)
== END 2024-09-09 09:35 | disposition home or self-care (01) ==
LOC: CHSLAB 09:36
PROVIDERS: PCP Physician Assistant; Visit Provider Internal Medicine Hematology
DX: D64.9 Anemia, unspecified (principal)
CPT/HCPCS: 36415; 82607; 82746; 83540; 83550; 85025

== ENCOUNTER 2024-12-19 09:58 | Emergency (ER) | payer OTHER, SELFPAY ==
--- NOTE | ~2024-12-19 | US_ITS ---
EXAMINATION: US pelvic complete w TV DATE: 12/19/2024 11:31 INDICATION: Dysfunctional uterine bleeding TECHNIQUE: Multiple transabdominal and endovaginal sonographic images of the pelvis were obtained. COMPARISON: None. FINDINGS: The uterus measures 9.0 x 5.4 x 5.1 cm. The endometrial complex measures 7 mm in thickness. There ar e a few uterine fibroids the largest measuring 2.2 cm maximal diameter. The right ovary measures 4.2 x 2.4 x 1.8 cm. 2.0 cm likely dominant follicle in the right ovary. The left ovary measures 2.2 x 1.5 x 1.7 cm. Vascular flow identified in both ovaries on color Doppler. There is small amount of likely physiologic anechoic free fluid in the pelvis. IMPRESSION: 1. Fibroid uterus. Reviewed, dictated and finalized at location A. IMPRESSION: 1. Fibroid uterus.
--- OUTSIDE RECORDS SUMMARY | 2024-12-19 10:00 | XMS_ITS | Clinical Summary ---
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 Gender Identity Not on file Sexual Orientation Not on file Last Filed Vital Signs Vital Sign Reading Time Taken Comments Blood Pressure 128/72 06/12/2024 8:35 AM CDT Pulse 80 06/12/2024 8:35 AM CDT Temperature 36.3 C (97.4 F) 06/11/2024 5:15 PM CDT Respiratory Rate 16 06/12/2024 8:35 AM CDT Oxygen Saturation 100% 06/12/2024 8:35 AM CDT Inhaled Oxygen Concentration - - Weight 65.3 kg (144 lb) 06/11/2024 5:15 PM CDT Height 162.6 cm (5' 4 ) 06/11/2024 5:15 PM CDT Body Mass Index 24.72 06/11/2024 5:15 PM CDT Plan of Treatment Health Maintenance Due Date Last Done Comments Cervical Cancer Screening Pa p Smear (Age 30 to 64) Every 3 Years 1981 Annual Physical 1984 Hepatitis C 1999 Hepatitis B Vaccines (1 of - 19+ 3-dose series) 2000 Cervical Cancer Screening Pa p with HPV Testing (Age 30 to 64) Every 5 Years 2011 Cervical Cancer Screening wi th HPV 2011 Mammogram Screening 2021 COVID-19 Vaccine (2023-2 5 season) 2024 06/19/2021, 05/29/2021 DTaP, Tdap and Td Vaccines ( 2 - Td or Tdap) 08/25/2025 08/25/2015 HPV Vaccines Aged Out No longer eligi ble based on patient's age to complete this topic Meningococcal B Vaccine Aged Out No l onger eligible based on patient's age to complete this topic Meningococcal Vaccine Aged Out No franki tena eligible based on patient's age to complete this topic Pneumococcal Vaccine: Pediatrics (0 to 5 Years) and At-Risk Patients (6 to 49 Years) Aged Out No longer eligible b ased on patient's age to complete this topic RSV Immunizations Under 20 Months Aged Out No longer eligible b ased on patient's age to complete this topic Insurance [employer] Care Teams Preparation Operator Relationship Specialty Start Date End Date Bernard Hunter MD [address] [place] [phone] PCP - General FAMILY PRACTICE 06/11/24
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
[2024-12-19 10:08] VITALS: BP 137/91; PULSE 99; RESP 20; TEMP 36.5; O2SAT 100
--- NOTE | 2024-12-19 10:13 | ED_ITS ---
HPI - Female Genitourinary General Chief complaint: Vaginal Bleeding Stated complaint: VAG BLEED Time Seen by Provider: 12/19/24 10:04 History of Present Illness HPI Narrative: 44-year-old female with no significant pertinent past medical history presenting to the emergency depart with 3 days of intermenstrual bleeding. Patient states she was intermittent with a partner on Saturday and had some bright red blood during the active self and then the next morning at some dark blood. She went to her primary care provider who have performed a wellness visit with a spec examination does show some dark blood but no acute concerns. She went home without any problems and no bleeding but this morning had a recurrence of some bright red blood. Feels like she is mildly bleeding with some lower uterine cramping sensations but is not supposed to start her. For several days. On review of the EMR and collateral formation patient does states she has a history of dysfunctional uterine bleeding and has been seen at 2 different ERs previously for this once almost 1 year prior. Denies any other trauma, nausea, vomiting, upper abdominal pain, diarrhea constipation. No blood red blood per rectum. Denies any significant trauma. Related Data Home Medications ?Medication ?Instructions ?Recorded ?Confirmed ?Last Taken ?Type No Home Medications 03/30/24 03/30/24 Unknown History Allergies Allergy/AdvReac Type Severity Reaction Status Date / Time No Known Allergies Allergy Unknown Verified 12/19/24 09:58 Review of Systems 2 Review of Systems: As reviewed above in HPI [facility] Past Medical History Medical History Pityriasis rosea No significant past medical history Surgical History Surgical History No significant past surgical history Family History Family History Other No significant family history Social History Social History Smoking status: Never smoker Alcohol intake: never Substance use type: does not use Gender identity (if verbalized by the patient): Female Exam 2 Narrative: GENERAL: [Well-appearing, well-nourished, and in no acute distress.] HEAD: [Normocephalic, atraumatic.] EYES: [PERRLA and EOMI.] ENT: Nares clear, no rhinorrhea or epistaxis. Mucous membranes moist. NECK: Supple. CHEST: [Clear to auscultation. No respiratory distress.] HEART: [Regular rate and rhythm]. No murmur heard. [Normal peripheral pulses.] ABDOMEN: [Soft, nondistended], [nontender], [No rigidity or guarding] EXTREMITIES: Normal range of motion. [No edema.] SKIN: Warm, dry, no rash. NEURO: [No focal deficits]. Alert and oriented [x3.] PSYCH: [Normal mood and affect.] Course Vital Signs Vital signs: Vital Signs Temperature 36.5 C 12/19/24 10:08 Pulse Rate 99 12/19/24 10:08 Respiratory Rate 20 12/19/24 10:08 Blood Pressure 137/91 H 12/19/24 10:08 Pulse Oximetry 100 12/19/24 10:08 Oxygen Delivery Room Air 12/19/24 10:08 Temperature 36.5 C 12/19/24 10:08 Pulse Rate 72 12/19/24 12:00 Respiratory Rate 14 12/19/24 12:00 Blood Pressure 112/73 12/19/24 12:00 Pulse Oximetry 98 12/19/24 12:00 Oxygen Delivery Room Air 12/19/24 10:08 MDM - Female Genitourinary MDM Narrative Medical decision making narrative: 44-year-old otherwise healthy female presenting with several days of intermittent vaginal bleeding. She had vaginal intercourse with a partner on Saturday and experience some bright red vaginal bleeding during the act. The next day she had some dark vaginal bleeding and had a wellness visit with her primary care provider without any acute concerns. States she had some more bright red vaginal bleeding but no significant hemorrhage. She had dorsum cramping and lower pelvic discomfort. Came to the ER for evaluation. She is not any acute distress, denies any significant pain, nausea vomiting, no active hemorrhaging or blood clots. Denies any blood thinner use, denies any chance of . Given the recent sexual intercourse resulting with some vaginal bleeding there could be a potential for a small tear versus trauma related bleeding verses early menses versus dysfunctional uterine bleeding versus . She has an overall well-appearing examination, no active bleeding at this time and speculum examination was deferred in lieu of ultrasonography pelvic scan. Will obtain basic laboratory studies to assess for coagulopathies and significant blood loss. Patient has an OBGYN and she will be able to follow-up with him on outpatient visit assuming unremarkable workup here. Laboratory studies showed no significant leukocytosis, there is some low wbc's which is chronic for her without any concern. Hemoglobin of 10.3 in line with her previous anemia. Normal platelet count. Normal coagulation panel. Normal electrolytes and renal function panel. Negative test. Transvaginal ultrasound shows fibroid uterus but no other acute concerns. This could be contributing to patient's recurrent dysfunctional uterine bleeding. Patient is safe and stable for discharge home and will follow up with her OBGYN and given return precautions. Medical Records Attestation: I reviewed the patient's medical records. Lab Data Attestation: I reviewed the patient's lab results. 12/19/24 10:19 12/19/24 10:19 Labs: Lab Results 12/19/24 12/19/24 Range/Units 10:19 10:24 WBC 2.2 L (4.5-10.0) K/mm3 RBC 3.91 L (4.2-5.4) M/mm3 Hgb 10.3 L (12.0-15.0) g/dL Hct 34.0 L (37.0-47.0) % MCV 87.0 (80-100) fl MCH 26.3 (26-34) pg MCHC 30.3 L (32-36) g/dl RDW 13.7 (11.5-14.5) % Plt Count 262 (150-375) k/mm3 MPV 10.7 H (7.4-10.4) fl Immature Gran % (Auto) 0.0 (0-0.5) % Neut % (Auto) 46.8 (45.5-73.1) % Lymph % (Auto) 38.2 (18.3-44.2) % Garrard % (Auto) 11.4 H (2.6-8.5) % Eos % (Auto) 1.8 (0-4.4) % Baso % (Auto) 1.8 H (0.2-1.2) % Lymph # (Auto) 0.84 L (0.9-3.2) K/mm3 Garrard # (Auto) 0.3 (0.1-0.6) K/mm3 Eos # (Auto) 0.0 (0-0.3) K/mm3 Baso # (Auto) 0.0 (0.0-0.1) K/mm3 Abs Immat Gran (auto) 0.00 (0.00-0.031) K/mm3 Absolute Neuts (auto) 1.0 L (1.3-6.7) K/mm3 Absolute Nucleated RBC 0.000 (0.0-0.012) K/mm3 Nucleated RBC % 0.0 (0.0-0.2) % PT 13.0 (11.1-14.7) Seconds INR 0.9 APTT 28.2 (22.3-36.8) Seconds Sodium 137 (137-145) mmol/L Potassium 4.1 (3.4-5.0) mmol/L Chloride 105 (98-107) mmol/L Carbon Dioxide 25 (22-30) mmol/L Anion Gap 7 (4-12) mmol/L BUN 8 (7-17) mg/dL Creatinine 1.00 (0.7-1.0) mg/dL Estim Creat Clear Calc 55 ml/min Estimated GFR > 60 (59 - ) Glucose 83 (65-110) mg/dL Calcium 8.9 (8.4-10.2) mg/dL Total Bilirubin 0.3 (0.2-1.3) mg/dL AST 27 (14-36) U/L ALT 15 (6-35) U/L Alkaline Phosphatase 43 (38-126) U/L Total Protein 8.0 (6.3-8.2) g/dL Albumin 4.6 (3.5-5.1) g/dL Beta HCG, Quant < 2.39 mIU/ML POC Urine HCG, Qual Negative (Negative) Imaging Data Attestation: I personally reviewed and interpreted this imaging study as follows: My impression: Impressions Pelvic/Transvag US 12/19/24 11:45 IMPRESSION: 1. Fibroid uterus. Discharge Plan Discharge Clinical Impression: Vaginal bleeding, Dysfunctional uterine bleeding, Fibroid uterus Patient Disposition: Home Condition: Stable Instructions: Antibiotic Form, Abnormal (Dysfunctional) Uterine Bleeding (ED), Uterine Fibroids (ED) Additional Instructions: Your ultrasonography shows fibroids in your uterus which is likely contributing to your vaginal bleeding as well as the dysfunctional uterine bleeding that you have had several times now. Follow-up with Dr. Clayton Rudolph your OBGYN for further recommendations. Your blood counts are not changed from your baseline levels so no acute concerns at this time. Return with any emergent concerns and follow-up with OBGYN. Patient Language: Puerto Rican Prescriptions: No Action No Home Medications Follow-up/Referrals: Sergei Figueroa MD [Physician] - 1 Week (DUB, fibroids) Sandy,LUCI Mcghee [Primary Care Provider] - Time of Disposition: 12:23
[2024-12-19 10:24] VITALS: BP 105/94; PULSE 74; RESP 14; O2SAT 100
[2024-12-19 10:27] LABS: BEDSIDEPREGUCG Negative (Negative)
[2024-12-19 10:40] LABS: Alanine Aminotransferase 15 U/L (6-35); Albumin Level 4.6 g/dL (3.5-5.1); Alkaline Phosphatase 43 U/L (38-126); Anion Gap 7 mmol/L (4-12); Aspartate Amino Transferase 27 U/L (14-36); Bilirubin,Total 0.3 mg/dL (0.2-1.3); Blood Urea Nitrogen 8 mg/dL (7-17); Calcium 8.9 mg/dL (8.4-10.2); Carbon Dioxide 25 mmol/L (22-30); Chloride 105 mmol/L (98-107); Estimated CRCL calculation 55 ml/min; Estimated Glomerular Filt Rate > 60; Glucose 83 mg/dL (65-110); Potassium 4.1 mmol/L (3.4-5.0); Sodium 137 mmol/L (137-145)
[2024-12-19 10:44] LABS: INR 0.9
[2024-12-19 10:45] LABS: Partial Thromboplastin Time 28.2 Seconds (22.3-36.8)
[2024-12-19 10:56] LABS: Beta HCG Quantitative < 2.39 mIU/ML
[2024-12-19 12:00] VITALS: BP 112/73; PULSE 72; RESP 14; O2SAT 98
[2024-12-19 12:12] LABS: Basophils Percent Auto 1.8 % (0.2-1.2); Eosinophils Percent Auto 1.8 % (0-4.4); Hemoglobin 10.3 g/dL (12.0-15.0); Lymphocytes Absolute Auto 0.84 K/mm3 (0.9-3.2); Lymphocytes Percent Auto 38.2 % (18.3-44.2); Mean Corpuscular HGB Conc 30.3 g/dl (32-36); Mean Corpuscular Hemoglobin 26.3 pg (26-34); Mean Platelet Volume 10.7 fl (7.4-10.4); Monocytes Absolute Auto 0.3 K/mm3 (0.1-0.6); Monocytes Percent Auto 11.4 % (2.6-8.5); Neutrophils Percent Auto 46.8 % (45.5-73.1); Platelet Count Result 262 k/mm3 (150-375); Red Blood Count 3.91 M/mm3 (4.2-5.4); Red Cell Distribution Width 13.7 % (11.5-14.5); White Blood Count 2.2 K/mm3 (4.5-10.0)
== END 2024-12-19 12:39 | disposition home or self-care (01) ==
PROVIDERS: Emergency Provider Student in an Organized Health Care Education/Training Program; PCP Physician Assistant
DX: N93.8 Other specified abnormal uterine and vaginal bleeding (principal); D25.9 Leiomyoma of uterus, unspecified
CPT/HCPCS: 36415; 76830; 76856; 80053; 81025; 84702; 85025; 85610; 85730; 99284

== ENCOUNTER 2025-01-26 13:03 | Outpatient (CLI) | payer OTHER, SELFPAY ==
--- NOTE | ~2025-01-26 | MM_ITS ---
EXAMINATION: MM screening orion BI w marguerite HISTORY: Screening mammogram TECHNIQUE: Craniocaudal and mediolateral oblique 3-D tomosynthesis images were obtained and synthetic 2-D images were generated. CAD analysis was submitted and interpreted. COMPARISON: 01/14/2024 BREAST PARENCHYMAL COMPOSITION: The breasts are extremely dense, which lowers the sensitivity of mamm ography. FINDINGS: No suspicious mass, calcification, or architectural distortion are identified in either br east to suggest malignancy. IMPRESSION: 1. No mammographic evidence of malignancy. 2. Recommend routine screening mammography in one year. BI-RADS Category 1: Negative Reviewed, dictated and finalized at location B.
--- OUTSIDE RECORDS SUMMARY | 2025-01-26 13:17 | XMS_ITS | Clinical Summary ---
Author Organization [facility] [employer] Address [address] [place] [address] Care Team Providers Care Computer Systems Consultant Name Role Phone Unavailable Primary Care Provider Unavailabl e Source Comments [facility] [employer],non-owned Affiliates and Associated Physician Practices is amultiple site organization consisting of ambulatory clinics and hospital sitesin [place], [place], [place] and [place]. This disclosure is being madepursuant to the Care Everywhere program and may not contain all information available regarding this patient. 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 Specimen Adequacy [facility] INSURANCE BILL Comment: Satisfactory for evaluation. Endocervical and/or squamous metaplastic cells (endocervical component) are present. Clinician Provided ICD10 [facility] INSURANCE BILL Comment: Z01.411 N92.0 Z91.410 Performed by [facility] INSURANCE BILL Comment:Willow Kang, Cytot echnologist (ASCP) [...] Thin Prep Vial Resulting Agency Comment [facility] [address] [id number] Amado Milligan MD LAB - PATHOLOGY/CYTOLOGY MELINDA WARE Final Result [facility] INSURANCE BILL [address] [place] [address] from Last 3 Months or Most Recently Relevant to Health Maintenance Insurance [facility] Advance Directives * FULL RESUSCITATION (Latest Code Status on File) Date Activated Date Inactivated Comments 12/23/2012 11:08 PM 12/24/2012 11:04 AM * FULL RESUSCITATION Date Activated Date Inactivated Comments 11/21/2012 5:26 PM 12/01/2012 9:01 PM
== END 2025-01-26 13:04 | disposition home or self-care (01) ==
LOC: CHSIMG 13:04
PROVIDERS: PCP Physician Assistant; Visit Provider Physician Assistant
DX: Z12.31 Encounter for screening mammogram for malignant neoplasm of breast (principal)
CPT/HCPCS: 77063; 77067